=== PATIENT | female | born 2000 | race Two or more races ===

== ENCOUNTER → 2019-08-31 16:53 | Outpatient (CLI) | payer SELFPAY ==
[2019-08-31 18:02] LABS: Hematocrit 38.3 % (37-47); Hemoglobin 12.8 g/dL (12.0-15.0); Mean Corp Hgb Conc 33.4 g/dL (32-36); Mean Corpuscular Hgb 30.3 pg (27.0-32.0); Mean Corpuscular Volume 90.5 fL (81-99); Mean Platelet Vol. 10.4 fl (6.2-12.0); Platelet Count 255 K/mm3 (150-450); RBC Distribution Width CV 12.4 % (11.6-14.6); RBC Distribution Width SD 40.5 fl (35.1-43.9); Red Blood Count 4.23 M/mm3 (4.2-5.4); White Blood Count 9.8 K/mm3 (4.4-11.0)
[2019-08-31 18:32] LABS: Thyroid Stim Hormone (TSH) 1.61 uIU/mL (0.358-3.74)
== END ==
PROVIDERS: Visit Provider Obstetrics & Gynecology
DX: N92.6 Irregular menstruation, unspecified (principal); R93.89 Abnormal findings on diagnostic imaging of other specified body structures
CPT/HCPCS: 36415; 84443; 85027

== ENCOUNTER 2019-11-27 08:44 | Day surgery (SDC) | payer SELFPAY ==
[2019-11-23 17:19] LABS: Hematocrit 40.7 % (37-47); Hemoglobin 13.7 g/dL (12.0-15.0); Mean Corp Hgb Conc 33.7 g/dL (32-36); Mean Corpuscular Hgb 30.6 pg (27.0-32.0); Mean Corpuscular Volume 91.1 fL (81-99); Mean Platelet Vol. 10.8 fl (6.2-12.0); Platelet Count 238 K/mm3 (150-450); RBC Distribution Width CV 12.2 % (11.6-14.6); RBC Distribution Width SD 40.4 fl (35.1-43.9); Red Blood Count 4.47 M/mm3 (4.2-5.4); White Blood Count 7.8 K/mm3 (4.4-11.0)
[2019-11-23 17:49] LABS: International Normalized Ratio 1.1; Prothrombin Time (Protime)PT. 13.8 SECONDS (11.7-14.9)
[2019-11-23 17:50] LABS: Partial Thromboplast Time 30.1 Seconds (24.1-36.2)
--- NOTE | 2019-11-26 21:51 | PCM.HPOB.BLA ---
- Problem List (1) Abnormal uterine bleeding Status: Acute (2) Neoplasm of cervix Status: Acute History and Physical Date of Admission: 11/27/19 Surgical History and Physical Date: 11/26/2019 Name: ARLEN CANTU Age: 19 Date of : 2000 Arlen Cantu, a 19 year old female 0 0 0 0 0, presents for dilation and curettage, cervical biopsy on November 26, 2001. -- Kelly reports 9 month hx persistent daily vaginal bleeding with dull intermittent cramping noted prior. She feels that she does not notice the discomfort much anymore. Bleeding initially started following intercourse. She was started on Sprintec with no improvement of bleeding or worsening. She is not sexually active at present, but has a hx. No known STI exposures. Denies hx sexual trauma. +emotional stress prior to onset of irregular bleeding. She reports prior had monthly, predictable menses without intermenstrual bleeding. Denies anemia sx. shm abnormally long bleeding which began 3-4 months ago. Additional comments are: still bleeding, some days barely some days worse. MEDICATIONS HISTORY: Current medications prescribed by our practice are: 1. Sprintec (28) 0.25 mg-35 mcg tablet, One pill by mouth once a day ALLERGIES: No Known Allergies Review of Systems: GENERAL - Denies fever, or chills SKIN - Denies skin changes EYES - Denies visual changes EARS - Denies difficulty hearing NOSE - Denies nasal congestion or bleeding MOUTH - Denies sore throat or difficulty swallowing NECK - Denies pain or swelling RESPIRATORY - Denies shortness of breath or wheezing CARDIOVASCULAR - Denies palpitations or chest pain GASTROINTESTINAL - Denies nausea, vomiting, diarrhea, constipation GENITOURINARY - Denies dysuria, frequency of urination, incontinence of urine MUSCULOSKELETAL - Denies joint or muscle pain NEUROLOGICAL - Denies localized numbness or weakness PSYCHIATRIC - Denies depression or anxiety ENDOCRINE - Denies heat or cold intolerance, weight loss or gain HEMATO-IMMUNOLOGIC - Denies excesive bleeding with cuts SOCIAL HISTORY: Alcohol Use - denies drinking Smoking - denies smoking Diet - moderate, balanced diet Lifestyle - single Exercise - none Seat Belt Use - always Employer - unemployed Illicit Drug Use - denies use of street drugs Sexual Activity - sexually inactive Residence - lives alone Place of - [facility] Control - Control Pills FAMILY HISTORY: MENSTRUAL HISTORY: LMP Known?- Approximate-Month KnownAmount/Duration - 3-4 months, Regularity - Irregular, Frequency - variable days, LMP - 10/26/19 PAST PREGNANCIES: Total Pregnancies - 0; Full Term Pregnancies - 0; Premature - 0; Abortions, Induced - 0; Abortions, Spontaneous - 0; Ectopics - 0; Multiple Births - 0; Living Children - 0 SURGICAL HISTORY: 1. Appendectomy, 2009 ; - PHYSICAL EXAM BP- 120/90 Sitting, Right arm, regular cuff Temp- 98.4 Taken Orally Weight- 146.57119 lbs CONSTITUTIONAL - NAD, well nourished, and well developed SKIN - No rash, lesions, or ulcers HEENT - normocephalic, atraumatic, sclerae anicteric LUNGS - CTA x2 without wheezes, crackles or rales CARDIAC - Regular rate and rhythm without rubs, murmurs, or gallops ABDOMEN - Without hepatosplenomegaly, distention, masses, rebound, or guarding; normal bowel sounds; no hernias NEUROLOGICAL - normal gait, normal balance, normal motor PSYCHIATRIC - A and O to time, place, person, mood and affect External Genitial Vagina - non-tender without lesions Urethra/Urethral Meatus - non-tender Bladder - non-tender Vagina - vaginal carey are pink and moist without loss of rugae and no evidence of atropy Cervix - has normal size with cauliflower like mass with bleeding Uterus - bimanual deferred Adnexa - bimanual deferred Pap - deferred ASSESSMENT/PLAN: 1. Excessive And Frequent Menstruation With Regular Cycle Sx refractory to OCP and cervical growth present Dfdx benign HPV lesion, polyp, carcinoma Reviewed with patient and host mother exam findings. Plan dilation and curettage, cervical biopsy Procedural r/b/i/a reviewed - following discussion, will plan for hysteroscopy, D and C, cervical biopy in OR CBC, T&S, coags The visit was approximately 35 minutes in length with most of the time spent in discussion and counseling. Consents signed and reviewed. Blood transfusion acceptable.
[2019-11-27] VITALS (8 sets, daily range): BP systolic 111–130; BP diastolic 66–87; PULSE 55–79; RESP 16–17; TEMP 36.3–37.2; O2SAT 95–99; BMI 28.8
[2019-11-27] MEDS: Lactated Ringers 1,000 ML 100 ML IV (09:26)
[2019-11-27 09:57] LABS: Internal QC Validated? YES +Cl - CLEAR BKGD; Pregnancy, Serum, hCG Quali. NEGATIVE Negative
--- NOTE | 2019-11-27 10:20 | CER_PTH ---
PATIENT: JAHAIRA CANTU LOC: [facility] [place] U#:[id number] AGE/SX: 19/F ROOM: RE11/27/[address]: Dr. Daisy Birce MD : 2000 BED: DIS: 11/27/2019 SPEC #: [id number] RECD: 11/27/19 13:45 STATUS: ARGENIS REKathleen #: [id number] SRI: 11/27/19 10:[address]: Daisy Barron DEPT: SURGICAL PATHOLOGY RECD BY: Marielos Moore ENTERED: 11/30/19 07:58 SP TYPE: CERV OTHR DR: No Primary Care Phys Tissues: A - Uterine cervix, NOS B - Endocervical C - Endometrium, NOS Procedures: Surgery Specimen Level IV HEADER OPERATION: Dilation and curettage, cervical biopsy PRE-OP DIAGNOSIS: Abnormal uterine bleeding; Neoplasm of cervix TISSUE SUBMITTED: A - Cervical biopsy, B - Endocervical curettings, C - Endometrial curettings MICROSCOPIC DIAGNOSIS A. 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 See comment. B. Endocervical curettings: Fragments of benign endocervical epithelium, blood and mucous. Strips of benign endometrial epithelium and strips of superficial benign endometrial tissue. Negative for malignancy. C. Endometrial curettings: Proliferative endometrium. Fragments of benign endocervical epithelium. Negative for malignancy. SJ:anh 12/07/19 COMMENT The specimen is sent to [facility] for expert opinion and reviewed by Dr. Deb Mueller and above diagnosis is rendered. Immunohistochemical stains from [facility] supports the above diagnosis. The complete report is viewable in patient's EMR. also commented sections show adenocarcinoma with both papillary and tubulocystic architecture. Hobnail tumor cells and cytoplasmic clearing are present. Immunohistochemical stains show the neoplastic cells are m?llerian in nature (PAX-8 positive). Metastatic renal cell and thyroid carcinoma are excluded (RCC negative/PAX2 negative and TTF-1 negative respectively). The morphologic features argue against a cervical adenocarcinoma primary and the lack of WT-1 argues against an ovarian primary. Serous endometrioid carcinoma is excluded base on the wild type p53 staining and lack of marked atypia/pleomorphism in the nuclei. The immunomorphologic features (p53 wild type, patchy P16, Napsin A positivity) all support a diagnosis of clear cell carcinoma; however, given the frequent presence of these clear cell features in m?llerian carcinoma of various histotypes, definitive diagnosis is referred to the excision specimen. This case is discussed with Dr. Guardado on 12/01/19 Case has been reviewed in consultation with Dr. Cazares who concurs with the above diagnosis. IDC:AM MICROSCOPIC DESCRIPTION Slides are reviewed. GROSS DESCRIPTION A - Received in fixative is one container labeled with the patient's name and designated cervical biopsy. The specimen consists of multiple fragments of hemorrhagic soft tissue that in aggregate measure 2.5 x 2 x 0.7 cm. The largest piece is bisected. The entire specimen is submitted in one cassette. B - Received in fixative is one container labeled with the patient's name and designated endocervical curettings. The specimen consists of multiple irregular fragments of wolf mucoid tissue that in aggregate measure 1.5 x 1 x 0.1 cm. The specimen is totally submitted in one cassette. C - Received in fixative is one container labeled with the patient's name and designated endometrial curettings. The specimen consists of multiple fragments of hemorrhagic soft tissue that in aggregate measure 2.5 x 0.5 x 0.1 cm. The specimen is totally submitted in one cassette. / SJ:rg 11/30/19 TC:0 CPT: 72373 x3
[2019-11-27] MEDS: Lubricating Jelly 60 GM Tube 30 GM TOPICAL (10:52)
--- NOTE | 2019-11-27 11:09 | OP.PCM_ITS ---
Problem List (1) Abnormal uterine bleeding Status: Acute (2) Neoplasm of cervix Status: Acute Report of Operation Date of Procedure: 11/27/19 Pre-Operative Diagnosis: Abnormal uterine bleeding. Cervical neoplasm Post-Operative Diagnosis: Abnormal uterine bleeding. Cervical neoplasm Surgery/Procedure Performed:: Fractional dilation and curettage. Cervical mass biopsy Description of Surgical Findings:: 1 and half centimeter nodular exophytic cervical mass with bleeding senior software quality engineer: None Type of Anesthesia:: Local MAC Anesthesiologist: Armando Pereira Specimen's removed: 1. cervical mass. 2. endocervical curettings. 3. endometrial curettings Estimated Blood Loss (mL): 20 Fluids Replaced: 600 ml Description of Procedure: Indications: 19-year-old nulligravida with a history of 9 months of almost daily vaginal bleeding refractory to oral contraceptive pills. On exam she was found to have an exophytic mass on her cervix approximately 1.5cm visually. She is advised to proceed with fractional D&C with biopsy of the mass. I did offer her office biopsy with the understanding that there was risk for hemorrhage requiring hospitalization emergent surgery. Procedural risks, benefits and indications were reviewed and the patient opted to proceed as planned. Procedure. Patient was brought to the operating room placed in the dorsal supine position induced under MAC. She was then repositioned to dorsolithotomy. The perineum was prepped and draped in sterile fashion. A bivalve speculum is placed into the vagina and the cervix grasped at the anterior cervical lip using a single-tooth tenaculum. Paracervical block was placed for total of 20 cc of 1% lidocaine with epinephrine 1 and 100,000. The cervical mass was noted as previously described. This was grasped using ring clamp and torsion biopsy performed with the bulk of the lesion. Endocervical curettage was subsequently performed and followed by mutual curettage. The bipolar electrocoagulation was applied to the ectocervix with good hemostasis. The procedure was complete. Sponge counts were correct x2. The patient was awakened and transferred to the recovery room without complication. - Complications None - Admit VTE Documentation VTE Present on Admission: No VTE Mechan Device Prophylaxis: SCD's VTE Pharm Prophylaxis ordered?: No
--- NOTE | 2019-11-27 11:18 | DCINST_ITS ---
Discharge Diet: No Restrictions Discharge Activity: Return to Normal Activity, May Shower, - - No tub bath for 1 week May resume sexual activity in: 4 weeks Call your doctor if you observe: Fever of 101 or Higher, Inability to urinate, Inability to have a bowel movement, Using more than one pad per hour, Shortness of breath, Chest pain, Calf discomfort, Uncontrolled pain Allergies/Adverse Reactions: Allergies No Known Allergies Allergy (Verified 11/26/19 09:42) Medications to take at Discharge Docusate Sodium [Colace] 100 mg PO DAILY 11/26/19 Ferrous Sulfate [Iron] 325 mg PO DAILY 11/26/19 Primary Care Physician: Care Physician,No Primary [Primary Care Provider] - Test Results: Test results from this visit will be discussed in further detail at your follow- up appointment, if applicable. Please Follow Up With: Daisy Guardado MD - Will call to determine follow up When: 2-4 weeks
== END 2019-11-27 13:46 | disposition home or self-care (01) ==
LOC: SDC 08:45 → AC 08:48
PROVIDERS: Referring Provider Obstetrics & Gynecology; Visit Provider Obstetrics & Gynecology
PROC: 0UDB8ZZ Extraction of Endometrium, Via Natural or Artificial Opening Endoscopic (ICD-10-PCS; CPT 58558; principal; 2019-11-27 10:10)
DX: C53.9 Malignant neoplasm of cervix uteri, unspecified (principal); D64.9 Anemia, unspecified
CPT/HCPCS: 57500; 58120; 36415; 84703; 85027; 85610; 85730; 86850; 86900; 86901; 88305; J7120; J2405